=== PATIENT | female | born 1940 | race Caucasian/White ===

== ENCOUNTER → 2021-10-26 15:17 | Outpatient (CLI) | payer MEDICARE, SELFPAY | PROVIDERS: Visit Provider Specialist | DX: R30.0 Dysuria (principal); N95.2 Postmenopausal atrophic vaginitis; N39.46 Mixed incontinence; Z87.440 Personal history of urinary (tract) infections | CPT/HCPCS: 51798; 81002; 87077; 87086; 87186; 99214 ==